=== PATIENT | female | born 1985 | race Caucasian/White ===

== ENCOUNTER 2022-03-16 04:22 | Inpatient (IN) ==
[2022-03-16] MEDS ORDERED: Buffered Lidocaine 1% SYRIN 1 ml INTRADERM ONE (05:15)
[2022-03-16] MEDS ORDERED: Lactated Ringers 1000 ml BAG 1,000 ML IV ONE (05:15)
[2022-03-16 05:47] LABS: Urine Benzodiazepine Screen None Detected (None Detect); Urine Cannabinoids Screen None Detected (None Detect); Urine Opiates Screen None Detected (None Detect)
[2022-03-16] MEDS ORDERED: Lactated Ringers 1000 ml BAG 1,000 ML IV SCH ×2 (06:00→18:00)
[2022-03-16] MEDS ORDERED: Witch Hazel PAD JAR TOPICAL PRN (17:47)
[2022-03-16] MEDS ORDERED: Oxytocin 10 UNITS/ML 1 ML VIAL IM ONE (17:47)
[2022-03-16] MEDS ORDERED: Glycerin ADULT 2.4 gm SUPP PR PRN (17:47)
[2022-03-16] MEDS ORDERED: Dibucaine 1% OINT 28.35 GM TUBE PR PRN (17:47)
[2022-03-17 07:07] LABS: ABS Eosinophils 0.1 10^3/ul (0-0.6); ABS Lymphocytes 1.7 10^3/ul (1.0-4.8); ABS Monocytes 0.8 10^3/ul (0-0.8); ABS Neutrophils 8.2 10^3/ul (1.5-7.7); Eosinophil % 1.3 %; Hematocrit 37 % (35-47); Hemoglobin 13.4 g/dL (12.0-16.0); Lymphocyte % 15.6 %; Mean Corpuscular HGB Conc 36 g/dL (31-36); Mean Corpuscular Hemoglobin 31 pg (27-31); Mean Corpuscular Volume 87 fL (80-97); Mean Platelet Volume 10.1 fL (7.4-10.4); Platelet Count 131 10^3/uL (150-450); Red Blood Count 4.28 10^6 /uL (3.70-4.87); Red Cell Distribution Width 13 % (10-15); White Blood Count 10.9 10^3/uL (3.5-10.8)
[2022-03-17 15:59] VITALS: BP 108/68
== END 2022-03-17 17:54 | disposition home or self-care (01) | DRG 807 ==
LOC: MCHOBOUT 04:22 → MCHOB 04:52
PROVIDERS: ADMIT Midwife; ATTEND Midwife